=== PATIENT | male | born 1950 | race Caucasian/White ===

== ENCOUNTER 2019-08-29 10:00 | Inpatient (IN) | payer OTHER ==
[~2019-08-29] VITALS: Ht 175.3 cm; Wt 79.7 kg
[~2019-08-29 10:00] MED LIST: AMLO5TAB9 PO; ASPI-1181 PO; ENAL20TA PO; LEVOTHYROXINE; METF-445 PO; METO-391 PO; SIMV80TA91 PO
[2019-09-01 14:42] VITALS: BP 153/71
[2019-09-01 14:46] LABS: APPEARANCE,URINE Clear (CLEAR); BILIRUBIN,URINE Negative (NEGATIVE); COLOR,URINE Yellow (YELLOW); GLUCOSE, URINE (UA) >=1000 mg/dL (NEGATIVE); KETONES,URINE Negative (NEGATIVE); LEUKOCYTE ESTERASE ,URINE Negative (NEGATIVE); NITRATE,URINE Negative (NEGATIVE); OCCULT BLOOD,URINE Negative (NEGATIVE); PROTEIN,URINE Negative (NEGATIVE); UROBILINOGEN,URINE 0.2 mg/dL (0.2-1.0)
[2019-09-01 14:52] LABS: BASOPHILS % (AUTO) 0.8 % (0.0-5.0); EOSINOPHILS % (AUTO) 4.1 % (0.0-8.0); HEMATOCRIT 43.3 % (42-54); LYMPHOCYTES % (AUTO) 17.5 % (21.0-51.0); MEAN CORPUSCULAR HEMOGLOBIN 28.6 pg (27.0-33.0); MEAN CORPUSCULAR HGB CONC 32.8 g/dL (32.0-36.0); MEAN CORPUSCULAR VOLUME 87.3 fL (79-99); MONOCYTES % (AUTO) 9.1 % (3.0-13.0); PLATELET COUNT (AUTO) 247 K/uL (130-400); RED BLOOD CELL COUNT(AUTO) 4.96 MIL/uL (4.50-6.20); RED CELL DISTRIBUTION WIDTH 12.4 % (11.0-15.5); WHITE BLOOD COUNT (AUTO) 6.6 K/uL (4.8-10.8)
[2019-09-01 15:03] LABS: INR 0.94 (0.85-1.15); PROTHROMBIN TIME 9.9 SEC (9.6-11.6)
[2019-09-01 15:05] LABS: BACTERIA,URINE None Seen /HPF (None Seen); RBC,URINE 0-1 /HPF (0-1); SQUAMOUS EPITHELIAL CELL,UR 0-2 /HPF (0-2); WBC,URINE 0-1 /HPF (0-1)
[2019-09-01 15:10] LABS: POTASSIUM 4.5 mmol/L (3.5-5.1)
[2019-09-05] VITALS (18 sets, daily range): BP systolic 109–146; BP diastolic 56–86
[2019-09-05] MEDS: CEFAZOLIN SODIUM 1 GM VIAL IVP SCH ×3 (06:00→17:07)
[2019-09-05] MEDS ORDERED: SODIUM CHLORIDE 0.9% 1000ML 1,000 ML IV ONE (06:57)
[2019-09-05] MEDS ORDERED: ASPI-1181 PO (07:09)
[2019-09-05] MEDS ORDERED: ROPIVACAINE 0.5% 5MG/ML 30ML IJ ONE (07:21)
[2019-09-05] MEDS ORDERED: LIDOCAINE PF 2% 5ML ABBOJECT ONE (07:23)
[2019-09-05] MEDS ORDERED: SUCCINYLCHOLINE 200MG/10ML SYR ONE (07:23)
[2019-09-05] MEDS ORDERED: DEXAMETHASONE SOD PHOSPHATE 10MG/ML 1ML VIAL ONE (07:24)
[2019-09-05] MEDS ORDERED: NEOSTIGMINE 5MG/5ML SYR IV ONE (07:24)
[2019-09-05] MEDS ORDERED: MIDAZOLAM HCL 1 MG/ML 2ML VIAL ONE (07:24)
[2019-09-05] MEDS ORDERED: ONDANSETRON HCL 4 MG/2 ML VIAL ONE (07:24)
[2019-09-05] MEDS ORDERED: PROPOFOL 10 MG/ML 20ML VIAL IV ONE (07:24)
[2019-09-05] MEDS ORDERED: GLYCOPYRROLATE 1 MG/5 ML SYRINGE ONE (07:24)
[2019-09-05] MEDS ORDERED: FENTANYL CITRATE PF 50 MCG/1 ML 2ML VIAL ONE ×2 (07:25→10:21)
[2019-09-05] MEDS ORDERED: ROCURONIUM 10MG/1ML SYR 10 MG/ML ML ONE (07:25)
--- NOTE | 2019-09-05 07:40 | NUR ---
SX LEFT KNEE CLIP AND WIPED WITH DUSTIN BY TRACEY
[2019-09-05] MEDS ORDERED: CEFAZOLIN SODIUM 1 GM VIAL ONE (08:19)
[2019-09-05] MEDS ORDERED: TRANEXAMIC ACID 1000MG/10ML ONE ×2 (08:20→12:00)
[2019-09-05] MEDS ORDERED: ACETAMINOPHEN EXTRA STRENGTH 500 MG TABLET ONE (08:34)
[2019-09-05] MEDS ORDERED: KETOROLAC TROMETHAMINE 15MG/ML ONE (08:34)
[2019-09-05] MEDS ORDERED: CELECOXIB 200 MG CAP ONE (08:35)
[2019-09-05] MEDS ORDERED: CEFAZOLIN SODIUM 1 GM VIAL IRRIG ONE (10:02)
[2019-09-05] MEDS ORDERED: LIDOCAINE HCL-MPF 1% 2ML VIAL IV PRN (11:30)
[2019-09-05] MEDS ORDERED: CALCIUM CARBONATE 500 MG TABLET PO PRN (11:30)
[2019-09-05] MEDS: INSULIN HUMULIN R 100 UNIT/ML 3ML SQ SCH ×3 (11:30→20:57)
[2019-09-05] MEDS ORDERED: TEMAZEPAM 15 MG CAPSULE PO PRN (11:30)
[2019-09-05] MEDS ORDERED: DiphenhydrAMINE HCL 50 MG/ML VIAL IVP PRN (11:30)
[2019-09-05] MEDS ORDERED: ONDANSETRON HCL 4 MG/2 ML VIAL IVP PRN (11:30)
[2019-09-05] MEDS ORDERED: FERROUS FUMARATE 324 MG TABLET PO PRN (11:30)
[2019-09-05] MEDS ORDERED: TRAMADOL HCL 50 MG TABLET PO PRN (11:30)
[2019-09-05] MEDS ORDERED: EPHEDRINE SULFATE 50 MG/ML AMPULE ONE (11:30)
[2019-09-05] MEDS ORDERED: POTASSIUM CHLORIDE 10% ELIXIR 20 MEQ/15 ML UDCUP PO PRN (11:30)
[2019-09-05] MEDS ORDERED: POTASSIUM CHLORIDE 20MEQ/100ML 100 ML IV PRN (11:30)
[2019-09-05] MEDS: ACETAMINOPHEN EXTRA STRENGTH 500 MG TABLET PO SCH ×2 (11:30→20:42)
[2019-09-05] MEDS ORDERED: OXYCODONE HCL 5 MG TAB PO PRN ×2 (11:30)
[2019-09-05] MEDS ORDERED: MEPERIDINE-PF 25 MG/ML SYG ONE ×2 (12:05→12:22)
[2019-09-05] MEDS: METFORMIN HCL 850 MG TABLET PO SCH ×2 (14:00→20:54)
--- NOTE | 2019-09-05 16:30 | NUR ---
INITIAL AND REFERRAL MET W PATIENT AND [facility] FOR DC PLANNING PT LIVES WITH [facility] WHO WILL PROVIDE TRANSPORT HOME. PRIOR TO SURGERY PATIENT WAS INDEPENDENT , DRIVES, HAS A WKR AND SHOWER CHAIR FROM [facility], AND IS SEEN [facility] IN [place] REFERRAL FOR HOME HEALTH SENT Addendum: 09/07/19 at 1458 by KESHAV LIND RN Amended: Links added.
[2019-09-05] MEDS: PREGABALIN 25 MG CAP PO SCH (20:42)
[2019-09-05] MEDS: ENALAPRIL MALEATE 10 MG TABLET PO SCH (20:43)
[2019-09-05] MEDS: FAMOTIDINE 20MG TAB 20 MG TAB PO SCH (20:43)
[2019-09-05] MEDS: AMLODIPINE BESYLATE 5 MG TAB PO SCH (20:43)
[2019-09-05] MEDS: SIMVASTATIN 20 MG TABLET PO SCH (20:43)
[2019-09-05] MEDS: METOPROLOL SUCCINATE 50 MG TAB.SR.24H PO SCH (20:43)
[2019-09-05] MEDS: ASPIRIN 81MG TAB.CHEW PO SCH (20:43)
[2019-09-05] MEDS: CELECOXIB 200 MG CAP PO SCH (20:43)
[2019-09-05] MEDS: SODIUM CHLORIDE 0.9% 1000ML 1,000 ML IV SCH ×2 (20:58→23:22)
[2019-09-05] MEDS ORDERED: HYDROMORPHONE 4MG/ML 1ML VIAL IVP PRN (22:45)
[2019-09-05] MEDS: KETOROLAC TROMETHAMINE 15MG/ML IV PRN (23:21)
[2019-09-06 00:12] VITALS: BP 114/64
[2019-09-06] MEDS ORDERED: HYDROMORPHONE 1 MG/1 ML AMP ONE (00:45)
[2019-09-06] MEDS: CEFAZOLIN SODIUM 1 GM VIAL IVP SCH (00:47)
[2019-09-06] MEDS ORDERED: HYDROMORPHONE HCL 2 MG/ML VIAL IVP PRN (02:30)
[2019-09-06] MEDS ORDERED: HYDROMORPHONE HCL 2 MG/ML VIAL ONE (03:38)
[2019-09-06] MEDS: ACETAMINOPHEN EXTRA STRENGTH 500 MG TABLET PO SCH ×3 (03:41→21:36)
[2019-09-06 04:12] VITALS: BP 119/63
[2019-09-06 05:04] LABS: HEMATOCRIT 33.7 % (42-54); MEAN CORPUSCULAR HEMOGLOBIN 28.5 pg (27.0-33.0); MEAN CORPUSCULAR HGB CONC 33.2 g/dL (32.0-36.0); MEAN CORPUSCULAR VOLUME 85.8 fL (79-99); PLATELET COUNT (AUTO) 232 K/uL (130-400); RED BLOOD CELL COUNT(AUTO) 3.93 MIL/uL (4.50-6.20); RED CELL DISTRIBUTION WIDTH 12.2 % (11.0-15.5); WHITE BLOOD COUNT (AUTO) 9.3 K/uL (4.8-10.8)
[2019-09-06 05:25] LABS: CREATININE 0.9 mg/dL (0.5-1.5); POTASSIUM 3.8 mmol/L (3.5-5.1)
[2019-09-06] MEDS: INSULIN HUMULIN R 100 UNIT/ML 3ML SQ SCH ×4 (05:27→21:00)
[2019-09-06] MEDS: SODIUM CHLORIDE 0.9% 1000ML 1,000 ML IV SCH (05:29)
[2019-09-06] MEDS: LEVOTHYROXINE 25 MCG TABLET PO SCH (05:33)
[2019-09-06] MEDS: POTASSIUM CHLORIDE 20 MEQ ERTAB PO PRN ×2 (06:36→09:08)
[2019-09-06] MEDS: METFORMIN HCL 850 MG TABLET PO SCH ×3 (07:32→16:46)
[2019-09-06] MEDS: KETOROLAC TROMETHAMINE 15MG/ML IV PRN ×3 (07:33→21:32)
[2019-09-06 08:15] VITALS: BP 113/74
[2019-09-06] MEDS: FAMOTIDINE 20MG TAB 20 MG TAB PO SCH ×2 (08:56→21:00)
[2019-09-06] MEDS: CELECOXIB 200 MG CAP PO SCH ×2 (08:56→21:36)
[2019-09-06] MEDS: POLYETHYLENE GLYCOL 3350 17 GM POWD.PACK PO SCH (08:57)
[2019-09-06] MEDS: ASPIRIN 81MG TAB.CHEW PO SCH ×2 (08:57→21:36)
[2019-09-06] MEDS: PREGABALIN 25 MG CAP PO SCH ×2 (08:57→21:36)
[2019-09-06] MEDS: TAMSULOSIN HCL 0.4 MG CAP.ER.24H PO SCH (09:00)
[2019-09-06 11:53] VITALS: BP 154/77
[2019-09-06 17:10] VITALS: BP 135/61
[2019-09-06 20:08] VITALS: BP 131/71
[2019-09-06] MEDS: AMLODIPINE BESYLATE 5 MG TAB PO SCH (21:36)
[2019-09-06] MEDS: SIMVASTATIN 20 MG TABLET PO SCH (21:37)
[2019-09-06] MEDS: ENALAPRIL MALEATE 10 MG TABLET PO SCH (21:37)
[2019-09-06] MEDS: METOPROLOL SUCCINATE 50 MG TAB.SR.24H PO SCH (21:37)
[2019-09-07 00:12] VITALS: BP 128/66
[2019-09-07] MEDS: ACETAMINOPHEN EXTRA STRENGTH 500 MG TABLET PO SCH ×3 (03:20→19:30)
[2019-09-07 04:12] VITALS: BP 145/79
[2019-09-07] MEDS: LEVOTHYROXINE 25 MCG TABLET PO SCH (05:17)
[2019-09-07] MEDS: INSULIN HUMULIN R 100 UNIT/ML 3ML SQ SCH ×3 (05:20→17:30)
[2019-09-07] MEDS: CELECOXIB 200 MG CAP PO SCH (08:27)
[2019-09-07] MEDS: METFORMIN HCL 850 MG TABLET PO SCH ×3 (08:27→17:27)
[2019-09-07] MEDS: ASPIRIN 81MG TAB.CHEW PO SCH (08:27)
[2019-09-07] MEDS: PREGABALIN 25 MG CAP PO SCH (08:28)
[2019-09-07] MEDS: TAMSULOSIN HCL 0.4 MG CAP.ER.24H PO SCH (08:28)
[2019-09-07] MEDS: POLYETHYLENE GLYCOL 3350 17 GM POWD.PACK PO SCH (08:28)
[2019-09-07] MEDS: FAMOTIDINE 20MG TAB 20 MG TAB PO SCH (08:48)
[2019-09-07 11:15] VITALS: BP 163/77
[2019-09-07] MEDS ORDERED: ASPI-1005 PO (17:39)
[2019-09-07] MEDS ORDERED: HYDR-4457 PO (17:39)
--- NOTE | 2019-09-07 19:00 | NUR ---
DISCHARGE INSTRUCTIONS GIVEN AND EXPLAINED UTILIZING TEACH BACK METHOD, PT AND VERBALIZED UNDERSTANDING. Dismiss today to [facility] [phone] APPOINTMENT: Your follow-up appointment is on 09/28/19 @ 10 A.M. Call office for any concerns 19/01 at DIET: -Resume your previous home diet. MEDICATIONS: -Resume your home medications as reviewed/instructed. -Take your prescription medications as instructed. -If you need a refill on your prescription pain medications, please call a few days before you take your last pain pill. WOUND CARE: -Nurse to remove your dressing on 09/12/19 and continue daily dressing changes if needed after removing the first dressing. -You may shower and get the RAYMON dressing wet. Follow nurse instructions to protect dressings battery . ACTIVITY: -You may ambulate with weight bearing as tolerated with a walker. -When you are resting, keep your leg(s) elevated but avoid placing pillows under knee. PHYSICAL THERAPY: Please follow therapist instructions for: -gait training with walker and weight bearing as tolerated, advance to cane as per therapist discretion -active/passive assisted flexion/extension exercises to operative knee(s) -quadriceps strengthening/hamstring stretching exercises to operative knee(s) -modalities as per physical therapist discretion CALL 911 OR GO TO EMERGENCY ROOM IF YOU HAVE ANY CHEST PAIN/DISCOMFORT, SHORTNESS OF BREATH/DIFFICULTY BREATHING OR NEEDED.
[2019-09-08] MEDS ORDERED: BISACODYL 10 MG SUPP.RECT RC PRN (11:30)
== END 2019-09-07 19:30 | disposition home health service (06) | DRG 470 ==
LOC: DAHIP 09-05 06:42 → 4AH 09-05 11:52
PROVIDERS: ADMIT Orthopaedic Surgery; ATTEND Orthopaedic Surgery
PROC: 3E0T3BZ Introduction of Anesthetic Agent into Peripheral Nerves and Plexi, Percutaneous Approach (ICD-10-PCS; 2019-09-05)
PROC: 0SRD0J9 Replacement of Left Knee Joint with Synthetic Substitute, Cemented, Open Approach (ICD-10-PCS; principal; 2019-09-05 09:08)
DX: M17.12 Unilateral primary osteoarthritis, left knee (principal); E11.9 Type 2 diabetes mellitus without complications; I10 Essential (primary) hypertension; M06.9 Rheumatoid arthritis, unspecified; Z82.49 Family history of ischemic heart disease and other diseases of the circulatory system; Z83.3 Family history of diabetes mellitus; Z85.828 Personal history of other malignant neoplasm of skin; Z87.891 Personal history of nicotine dependence; E78.5 Hyperlipidemia, unspecified; L57.0 Actinic keratosis; Z95.1 Presence of aortocoronary bypass graft
CPT/HCPCS: 36415; 80048; 81001; 82948; 85025; 85027; 85610; 87641; G0378; J0330; J0690; J1100; J1170; J1815; J1885; J2001; J2175; J2250; J2405; J2704; J2710; J2795; J3010; J3490; J7030; J7120